=== PATIENT | female | born 1960 | race Caucasian/White ===

== ENCOUNTER 2016-07-20 15:52 | Emergency (ER) | payer BC ==
[2016-07-20] MEDS ORDERED: IBUPROFEN 800 MG TABLET PO ONE (16:08)
[2016-07-20] MEDS ORDERED: ONDANSETRON 4 MG TAB.RAPDIS PO ONE (16:08)
--- NOTE | 2016-07-20 16:08 | ER Document Report ---
ED Medical Screen (RME) - General Chief Complaint: Flank Pain Stated Complaint: RIGHT FLANK PAIN Time seen by provider: 16:04 Mode of Arrival: Ambulatory Information source: Patient Notes: 55-year-old female presents to ED for right flank pain started a couple days ago ran away and came back last night with a vengeance with nausea and vomiting started today. Patient has a history of kidney stones 2 years ago. She states that the urologist stated she still had 2 stones and will one kidney and one stone in the other kidney. I have greeted and performed a rapid initial assessment of this patient. A comprehensive ED assessment and evaluation of the patient, analysis of test results and completion of medical decision making process will be conducted by an additional ED providers. Physical Exam - Vital signs Vitals: Temp Pulse Resp BP Pulse Ox 97.8 F 81 18 190/108 H 97 07/20/16 16:01 07/20/16 16:01 07/20/16 16:01 07/20/16 16:01 07/20/16 16:01 Course - Vital Signs Vital signs: Temp Pulse Resp BP Pulse Ox 97.8 F 81 18 190/108 H 97 07/20/16 16:01 07/20/16 16:01 07/20/16 16:01 07/20/16 16:01 07/20/16 16:01
[2016-07-20 16:49] LABS: ABSOLUTE EOSINOPHILS # (AUTO) 0.1 10^3/uL (0.0-0.6); ABSOLUTE LYMPHOCYTES (AUTO) 1.5 10^3/uL (0.5-4.7); ABSOLUTE MONOCYTES (AUTO) 0.5 10^3/uL (0.1-1.4); ABSOLUTE NEUT (AUTO) 12.4 10^3/uL (1.7-8.2); BASOPHILS % (AUTO) 0.3 % (0-2); EOSINOPHILS % (AUTO) 0.5 % (0-6); HEMATOCRIT 46.5 % (36.0-47.0); HEMOGLOBIN 15.1 g/dL (12.0-15.5); HGB HCT DIFFERENCE -1.2; LYMPHOCYTES % (AUTO) 10.4 % (13-45); MEAN CORPUSCULAR HEMOGLOBIN 27.9 pg (27.0-33.4); MEAN CORPUSCULAR HGB CONC 32.6 g/dL (32.0-36.0); MEAN CORPUSCULAR VOLUME 86 fl (80-97); MONOCYTES % (AUTO) 3.7 % (3-13); RED BLOOD COUNT 5.43 10^6/uL (3.72-5.28); SEGMENTED NEUTROPHILS % (AUTO) 85.1 % (42-78); WHITE BLOOD COUNT 14.6 10^3/uL (4.0-10.5)
[2016-07-20 17:09] LABS: ALANINE AMINOTRANSFERASE 37 U/L (9-52); ALBUMIN 4.4 g/dL (3.5-5.0); ALKALINE PHOSPHATASE 129 U/L (38-126); ANION GAP 12 (5-19); ASPARTATE AMINO TRANSFERASE 22 U/L (14-36); BILIRUBIN,TOTAL 0.7 mg/dL (0.2-1.3); BLOOD UREA NITROGEN 17 mg/dL (7-20); CALCIUM 10.3 mg/dL (8.4-10.2); CARBON DIOXIDE 28 mmol/L (22-30); CHLORIDE 103 mmol/L (98-107); CREATININE RESULT 0.84 mg/dL (0.52-1.25); GLUCOSE 162 mg/dL (75-110); POTASSIUM 4.5 mmol/L (3.6-5.0); SODIUM 142.5 mmol/L (137-145); TOTAL PROTEIN 7.2 g/dL (6.3-8.2)
[2016-07-20 17:18] LABS: AMORPHOUS SEDIMENT,URINE TRACE /HPF; APPEARANCE,URINE TURBID; BILIRUBIN,URINE NEGATIVE (NEGATIVE); GLUCOSE, URINE 50 mg/dL (NEGATIVE); KETONES,URINE TRACE mg/dL (NEGATIVE); LEUKOCYTE ESTERASE,URINE NEGATIVE (NEGATIVE); NITRITE,URINE NEGATIVE (NEGATIVE); PROTEIN,URINE NEGATIVE (NEGATIVE); URINE SPECIFIC GRAVITY 1.011; UROBILINOGEN,URINE NEGATIVE mg/dL (<2.0)
--- NOTE | 2016-07-20 18:00 | ER Document Report ---
ED General - General Chief Complaint: Flank Pain Stated Complaint: RIGHT FLANK PAIN Mode of Arrival: Ambulatory Notes: Patient presents to the emergency department with complaints of right-sided flank pain. Patient reports the symptoms started approximately 2 nights ago she felt pain in her right flank. The next day the pain was gone and she felt fine. Last night she started having pain again and today after lunch she started vomiting. Reports hx of kidney stones 2 years ago. Denies fever and diarrhea. Notes hematuria TRAVEL OUTSIDE OF THE [place] IN LAST 30 DAYS: No - HPI Onset: Other - 2 days Onset/Duration: Persistent, Waxing and waning Quality of pain: Achy, Pressure, Sharp Severity: Severe Pain Level: 4 Associated symptoms: Nausea, Vomiting Exacerbated by: Denies Relieved by: Denies Similar symptoms previously: Yes Recently seen / treated by doctor: No - Related Data Allergies/Adverse Reactions: latex Allergy (Verified 07/20/16 16:08) Past Medical History - General Information source: Patient - Social History Smoking Status: Current Every Day Smoker Cigarette use (# per day): Yes Chew tobacco use (# tins/day): No Frequency of alcohol use: None Drug Abuse: None Lives with: Family Family History: Other - sister and brother with kidney stones Patient has suicidal ideation: No Patient has homicidal ideation: No - Past Medical History Cardiac Medical History: Reports: Hx Hypertension Renal/ Medical History: Reports: Hx Kidney Stones. Denies: Hx Peritoneal Dialysis Surgical Hx: Negative Review of Systems - Review of Systems Notes: Review HPI for review of systems., All other systems negative Physical Exam - Vital signs Vitals: Temp Pulse Resp BP Pulse Ox 97.8 F 81 18 190/108 H 97 07/20/16 16:01 07/20/16 16:01 07/20/16 16:01 07/20/16 16:01 07/20/16 16:01 - Notes Notes: PHYSICAL EXAMINATION: GENERAL: nontoxic looking, comfortable, reports motrin helped alleviate pain HEAD: Atraumatic, normocephalic. EYES: Pupils equal round extraocular movements intact, sclera anicteric, conjunctiva are normal. ENT: nares patent, Moist mucous membranes. NECK: Normal range of motion, supple without lymphadenopathy LUNGS: CTAB and equal. No wheezes rales or rhonchi. HEART: Regular rate and rhythm without murmurs ABDOMEN: Soft, no tenderness. No guarding, no rebound BACK: Right CVA ttp EXTREMITIES: Normal range of motion, no pitting edema. NEUROLOGICAL: Cranial nerves grossly intact. Normal sensory/motor PSYCH: Normal mood, normal affect. SKIN: Warm, Dry, normal turgor, no rashes or lesions noted Course - Re-evaluation Re-evalutation: 07/20/16 19:29 I have consulted the attending provider Dr. Childs per [facility] guidelines. I consulted Dr. Nayan Ramirez at the urologist with CT results and patient complaints. He advised to not give patient Flomax if she would like treatment such as lithotripsy. He reports patient may be discharged and follow-up with him in the morning. I offered the patient Flomax. She declines and would probably like to have the stones taken care of. We discussed plan of care. She reported the Motrin helped alleviate the pain when she first came in. Patient will be given a shot of Toradol now. If this helps her pain she'll be discharged with Percocet and Zofran and follow-up without urologist in a.m. 07/20/16 20:50 pain 2/5, bp elevated, patient has not taken her blood pressure medications tonight. She is not sure what she takes. Patient was instructed on her elevated blood pressure encouraged take her medications upon arrival at home. She denies headache no strokelike symptoms. - Vital Signs Vital signs: Temp Pulse Resp BP Pulse Ox 98.1 F 91 14 160/105 H 97 07/20/16 20:44 07/20/16 20:44 07/20/16 20:44 07/20/16 20:44 07/20/16 20:44 - Laboratory Result Diagrams: 07/20/16 16:25 07/20/16 16:25 Laboratory results interpreted by me: 07/20/16 07/20/16 07/20/16 16:25 16:25 16:25 WBC 14.6 H RBC 5.43 H Seg Neutrophils % 85.1 H Lymphocytes % 10.4 L Absolute Neutrophils 12.4 H Glucose 162 H Calcium 10.3 H Alkaline Phosphatase 129 H Urine Glucose (UA) 50 H Urine Ketones TRACE H Urine Blood LARGE H - Diagnostic Test Radiology reviewed: Image reviewed, Reports reviewed - Right-sided hydronephrosis secondary to multiple static stones within the distal right ureter Discharge - Discharge Clinical Impression: Flank pain, Kidney stone on right side, elevated blood pressure Condition: Stable Disposition: HOME, SELF-CARE Instructions: Oral Narcotic Medication ([facility]), Antinausea Medication ([facility]), Toradol Injection ([facility]), Kidney Stone ([facility]) Additional Instructions: *You have been evaluated for flank pain, kidney stone *Push fluids *Take medication as prescribed *Follow up with the urologist tomorrow, Dr. Nayan Ramirez. Call tomorrow am for an appointment tomorrow afternoon. *Monitor your blood pressure. Your blood pressure was elevated today. This may be because you were anxious, in pain or because you need medication. It is important to follow up with your primary care provider for full evaluation. *Return to ED for worsening condition, changes, needs, fever, worsening pain, vomiting *Return to ED if not better in 24 hours Prescriptions: Ondansetron [Zofran Odt 4 mg Tablet] 1 - 2 tab PO Q4H #10 tab.rapdis Oxycodone HCl/Acetaminophen [Percocet 5-325 mg Tablet] 1 - 2 tab PO ASDIR PRN # 15 tablet PRN Reason: Forms: Elevated Blood Pressure, Smoking Cessation Education Referrals: NAYAN RAMIREZ MD [[facility]] - Follow up tomorrow (call tomorrow morning for appointment for tomorrow afternoon)
[2016-07-20] MEDS ORDERED: KETOROLAC TROMETHAMINE 60 MG/2 ML SDV IM ONE (18:58)
[2016-07-20] MEDS ORDERED: PROMETHAZINE HCL 25 MG TABLET PO ONE (20:06)
[2016-07-20] MEDS ORDERED: ONDANSETRON ODT 4 MG TAB (6 TAB/DSPK) PO PRN (20:16)
[2016-07-20] MEDS ORDERED: HYDROCODONE/ACETAMINOPHEN 5-325 MG 6 TAB/DSPK PO PRN (20:16)
[2016-07-20 20:48] VITALS: BP 160/105
== END 2016-07-20 20:47 | disposition home or self-care (01) ==
LOC: ER 15:52
DX: N20.0 Calculus of kidney (principal); R03.0 Elevated blood-pressure reading, without diagnosis of hypertension; R10.9 Unspecified abdominal pain; R11.10 Vomiting, unspecified
CPT/HCPCS: 99284; 96372; 36415; 85025; 80053; 81001; 76380; J1885; S0119

== ENCOUNTER → 2016-08-02 | Outpatient (CLI) | payer BC | LOC: OD 09:25 | PROVIDERS: ATTEND Urology | DX: N20.0 Calculus of kidney (principal) | CPT/HCPCS: 74000 ==